=== PATIENT | female | born 1940 | race Caucasian/White ===

== ENCOUNTER 2018-02-19 08:57 | Outpatient (CLI) | payer MEDICARE ==
--- NOTE | 2018-02-19 10:19 | RAD ---
TWO VIEW CHEST: History: Dyspnea. Comparison: 11-02-17 FINDINGS: Heart size upper normal. There is mild vascular engorgement, similar to the prior exam. There is stre aky atelectasis in the left lung base. There are some scattered parenchymal densities which appear un changed. No significant effusion. Interstitial prominence in the posterior lung bases appear stable o n lateral view. IMPRESSION: Mild vascular engorgement with scattered chronic appearing parenchymal opacities. The chest appears s table when compared to 11-02-17. POS: [facility]
== END 2018-02-19 08:58 | disposition home or self-care (01) ==
LOC: RAD 08:57
PROVIDERS: ATTEND Internal Medicine Critical Care Medicine
DX: R06.00 Dyspnea, unspecified (principal)
CPT/HCPCS: 71046